=== PATIENT | male | born 1995 | race Caucasian/White ===

== ENCOUNTER 2020-07-22 19:15 | Emergency (ER) | payer OTHER ==
[2020-07-22] MEDS ORDERED: KETOROLAC 15 MG/ML 1 ML VIAL IM STA (19:39)
--- NOTE | 2020-07-22 19:42 | ED ---
General Adult HPI - General Chief complaint: Chest Pain Stated complaint: Chest pain Time Seen by Provider: 07/22/20 19:20 Source: patient, RN notes reviewed, old records reviewed Mode of arrival: wheelchair Limitations: no limitations - History of Present Illness Initial comments: This a 24-year-old male who presents to the emergency department complaining of anterior chest pain. Patient states the pain does not radiate anywhere. Patient states it started a couple of days ago. Patient states it's worse with a deep breath and it is also worse with palpation. Patient states last week he had a couple ounces of the pain is sharp and lasts only a few seconds last week. Patient states now is much more consistent with deep breathing or palpation. Patient denies any shortness of breath patient denies any cough fever chills. Patient states he doesn't variety of jobs and sometimes involves some lifting. Patient does not recall any incident where he hurt his chest. Patient denies any abdominal pain patient denies nausea vomiting diarrhea. Patient denies any hypertension high cholesterol or diabetes. Patient states he is not a smoker. - Related Data Previous Rx's Medication Instructions Recorded Ketorolac [Toradol] 10 mg PO Q6HR #15 tab 07/22/20 Allergies Allergy/AdvReac Type Severity Reaction Status Date / Time No Known Allergies Allergy Verified 07/22/20 20:05 Review of Systems ROS Statement: Those systems with pertinent positive or pertinent negative responses have been documented in the HPI. ROS Other: All systems not noted in ROS Statement are negative. Past Medical History Past Medical History: No Reported History History of Any Multi-Drug Resistant Organisms: None Reported Past Surgical History: No Surgical Hx Reported Past Psychological History: ADD/ADHD Smoking Status: Never smoker Past Alcohol Use History: None Reported Past Drug Use History: None Reported General Exam - General Exam Comments Initial Comments: GENERAL: Patient is well-developed and well-nourished. Patient is nontoxic and well- hydrated and is in mild distress. ENT: Neck is soft and supple. No significant lymphadenopathy is noted. Oropharynx is clear. Moist mucous membranes. Neck has full range of motion without eliciting any pain. EYES: The sclera were anicteric and conjunctiva were pink and moist. Extraocular movements were intact and pupils were equal round and reactive to light. Eyelids were unremarkable. PULMONARY: Unlabored respirations. Good breath sounds bilaterally. No audible rales rhonchi or wheezing was noted. CARDIOVASCULAR: There is a regular rate and rhythm without any murmurs gallops or rubs. ABDOMEN: Soft and nontender with normal bowel sounds. SKIN: Skin is clear with no lesions or rashes and otherwise unremarkable. NEUROLOGIC: Patient is alert and oriented x3. Cranial nerves II through XII are grossly intact. Motor and sensory are also intact. Normal speech, volume and content. Symmetrical smile. MUSCULOSKELETAL: Normal extremities with adequate strength and full range of motion. LYMPHATICS: No significant lymphadenopathy is noted PSYCHIATRIC: Normal psychiatric evaluation. Limitations: no limitations Course Vital Signs 07/22/20 19:17 Temperature 98.1 F Pulse Rate 97 Respiratory 20 Rate Blood Pressure 139/85 O2 Sat by Pulse 100 Oximetry Medical Decision Making - Medical Decision Making Patient's EKG shows normal sinus rhythm at 87 bpm MD interval is on a 54 QRS is 104 QT interval 354 QTC is 425. Patient's EKG shows no ST segment elevation or depression. The chest x-ray shows no acute abnormality. Patient received Toradol in the emergency department. When I went back into reevaluate the patient he was sleeping and needed to be awoken by me per patient states the Toradol seemed to help. Disposition Clinical Impression: Chest wall pain Disposition: HOME SELF-CARE Condition: Good Instructions (If sedation given, give patient instructions): Chest Pain (ED), Costochondritis (ED) Prescriptions: Ketorolac [Toradol] 10 mg PO Q6HR #15 tab Is patient prescribed a controlled substance at d/c from ED?: No Referrals: None,Stated [Primary Care Provider] - 1-2 days Time of Disposition: 20:50
[2020-07-22 19:51] VITALS: TEMP 98.1
--- NOTE | 2020-07-22 19:58 | XR ---
EXAMINATION TYPE: XR chest 2V DATE OF EXAM: 07/22/2020 COMPARISON: NONE HISTORY: Chest pain TECHNIQUE: 2 views FINDINGS: Heart and mediastinum are normal. Lungs are clear. Diaphragm is normal. Bony thorax appears normal. There are chest leads. IMPRESSION: Normal chest. Normal heart.
[2020-07-22 21:01] VITALS: BP 134/87; PULSE 87; RESP 18
== END 2020-07-22 20:55 | disposition home or self-care (01) ==
LOC: EC 19:15
DX: R07.89 Other chest pain (principal)
CPT/HCPCS: 93005; 71046; 99285; 96372; J1885